=== PATIENT | male | born 1955 | race Caucasian/White ===

== ENCOUNTER 2016-07-22 06:37 | Day surgery (SDC) | payer OTHER ==
[2016-07-18 14:29] VITALS: BMI 27.9
[2016-07-22] MEDS ORDERED: COCAINE HCL 4% TOPICAL SOLUTION 4 ML BOTTLE TP ONE ×2 (07:23→08:25)
[2016-07-22] MEDS ORDERED: LIDOCAINE 1%/EPI 1:100000 (50 ML MULTI DOSE VIAL) ONE (07:32)
[2016-07-22] MEDS ORDERED: MIDAZOLAM HCL 2 MG/2 ML SINGLE DOSE VIAL ONE (07:51)
[2016-07-22] MEDS ORDERED: ROCURONIUM BROMIDE 50 MG/5 ML VIAL ONE (07:52)
[2016-07-22] MEDS ORDERED: SUCCINYLCHOLINE CHLORIDE 200 MG/10 ML VIAL ONE (07:52)
[2016-07-22] MEDS ORDERED: PROPOFOL 20 ML ONE ×2 (07:52)
--- NOTE | 2016-07-22 07:53 | HP ---
Admitting History and Physical - Admission Chief Complaint: Sinus problems and nasal congestion History Source: Patient, Medical Record Limitations to Obtaining History: No Limitations - Past Medical History Cardiovascular: Yes: HTN Renal/: Yes: Other (prostate) - Smoking History Smoking history: Never smoked Have you smoked in the past 12 months: No - Alcohol/Substance Use Hx Alcohol Use: Yes (social) Home Medications - Allergies Allergies/Adverse Reactions: Allergies Allergy/AdvReac Type Severity Reaction Status Date / Time No Known Allergies Allergy Verified 10/09/13 21:46 - Home Medications Home Medications: Ambulatory Orders Alfuzosin HCl [Alfuzosin HCl ER] 10 mg PO DAILY 07/18/16 Amlodipine Besylate 10 mg PO HS 07/18/16 Atenolol [Tenormin -] 50 mg PO DAILY 07/18/16 Hydrochlorothiazide 25 mg PO DAILY 07/18/16 Losartan Potassium 25 mg PO BID 07/18/16 Review of Systems - Review of Systems Constitutional: reports: No Symptoms Eyes: reports: No Symptoms HENT: reports: Nasal Congestion Neck: reports: No Symptoms Cardiovascular: reports: No Symptoms Respiratory: reports: No Symptoms Gastrointestinal: reports: No Symptoms Genitourinary: reports: No Symptoms Musculoskeletal: reports: No Symptoms Integumentary: reports: No Symptoms Neurological: reports: No Symptoms Endocrine: reports: No Symptoms Hematology/Lymphatic: reports: No Symptoms Psychiatric: reports: No Symptoms Physical Examination Vital Signs: Vital Signs Temperature 97.5 F L 07/22/16 06:54 Pulse Rate 59 L 07/22/16 06:54 Respiratory Rate 20 07/22/16 06:54 Blood Pressure 152/59 07/22/16 06:54 O2 Sat by Pulse Oximetry (%) 97 07/22/16 06:54 Constitutional: Yes: Well Nourished, No Distress, Calm Eyes: Yes: WNL HENT: Yes: WNL, Nasal Congestion Neck: Yes: WNL Cardiovascular: Yes: WNL Respiratory: Yes: WNL Gastrointestinal: Yes: WNL Musculoskeletal: Yes: WNL Extremities: Yes: WNL Problem List - Problems (1) Chronic sinusitis Assessment/Plan: Sinus surgery Code(s): J32.9 - CHRONIC SINUSITIS, UNSPECIFIED Qualifiers: Sinusitis location: pansinusitis Qualified Code(s): J32.4 - Chronic pansinusitis
[2016-07-22] MEDS ORDERED: ceFAZolin SODIUM 1 GM VIAL IVPB ONE ×2 (08:10→08:13)
[2016-07-22] MEDS ORDERED: LIDOCAINE 1%/EPI 1:100000 (50 ML MULTI DOSE VIAL) INF ONE (08:24)
[2016-07-22] MEDS ORDERED: ceFAZolin SODIUM 1 GM VIAL ONE (08:25)
[2016-07-22] MEDS ORDERED: ePHEDrine SULFATE 50 MG/1 ML AMPULE ONE (08:39)
[2016-07-22] MEDS ORDERED: BACITRACIN 30 GM TUBE TOPICAL OINTMENT TP ONE (09:00)
[2016-07-22] MEDS ORDERED: PROMETHAZINE HCL 25 MG/1 ML VIAL IVPUSH PRN (09:01)
[2016-07-22] MEDS ORDERED: oxyCODONE HCL 5 MG TABLET PO PRN (09:01)
[2016-07-22] MEDS ORDERED: ONDANSETRON 4 MG/2 ML VIAL IVPUSH PRN (09:01)
[2016-07-22] MEDS ORDERED: NEOSTIGMINE METHYLSULFATE 0.5 MG/ML - 10 ML MDV ONE (09:05)
[2016-07-22] MEDS ORDERED: GLYCOPYRROLATE 0.2 MG/1 ML VIAL ONE (09:05)
--- NOTE | 2016-07-22 10:19 | OP ---
DATE OF OPERATION: 07/22/2016 PREOPERATIVE DIAGNOSIS: Chronic sinusitis, deviated septum, turbinate hypertrophy, nasal polyposis. POSTOPERATIVE DIAGNOSIS: Chronic sinusitis, deviated septum, turbinate hypertrophy, nasal polyposis. PROCEDURE: Bilateral endoscopic _frontal____ balloon sinuplasty and bilateral anterior ethmoidectomy, left maxillary antrostomy with tissue removal, right maxillary balloon sinuplasty, inferior turbinate outfracturing, cautery, and sinus navigation. SURGEON: Molina Feliz MD ANESTHESIA: General with Marion Bermudez MD. INDICATIONS FOR THE PROCEDURE: This is a gentleman with nasal polyposis, chronic nasal congestion, with chronic sinus problems refractory to medical treatment. CT reveals diffuse sinus disease. Risks and benefits of the procedure were discussed, other options were discussed, as well, and all questions were answered, and he wanted to proceed. PROCEDURE FOLLOWS: Patient was brought to the operating room and placed under general anesthesia. The nose was decongested with Cottonoids with 4% cocaine, and an injection of 1% lidocaine with 1:100,000 epinephrine was injected into the inferior turbinates, lateral nasal wall, and nasal polyps. The nose was examined with a headlight and a 0-degree endoscope. Some deviation of the septum was noted, but the deviation did not seem to obstruct his nose significantly, nor obstruct the visualization of the middle turbinates on either side. At which point, using the WHOOP navigation, which we calibrated, I cannulated each frontal sinus, first the left, then the right, and then I placed a frontal sinus balloon in the left frontal sinus and inflated it two times for 5 seconds a piece and withdrew it. Then, I instilled it into the right frontal sinus and inflated it 2 times. Cottonoids were placed in both frontal recesses. At which point, the polyps on the left side were removed using the straight- guided microdebrider. The polyps were obstructing most of the middle meatus. At which point, a straight-guided suction was placed into the bulla of the sinus, and the microdebrider was used to resect the anterior ethmoid to the ground lamella. The uncinate was pulled forward, and using an angled scope, the maxillary sinus was cannulated with the balloon and dilated. Then, the microdebrider was placed through the ostia, and the ostia was widened inferiorly, and material was removed from the maxillary sinus. Mucoid fluid was suctioned as well as some remnant of polyp tissue. Cottonoid was then replaced into the ethmoid. After doing the left side, the right uncinate was peeled forward, and a balloon was placed in a guided fashion into the maxillary antrum on the right side, and the balloon was inflated twice, dilating the ostia. There were very large polyps on the right side, much larger than the left side. These were followed back to the choanae and up into the middle meatus to its detachments on the ethmoid bulla. The ethmoid bulla was entered and exonerated using the microdebrider in a guided fashion. The inferior turbinates were outfractured with a long needle speculum and three passes with the bipolar turbinate cautery was performed, first on the left side, then, on the right side, on a setting of 4.5. A standard NasoPore packing was placed in the left ethmoid and also in the middle meatus on the left side. A firm packing was placed in the ethmoid cavity of the right side, and then the choanae were suctioned, Bacitracin was placed in both nostrils, and the patient was extubated, awakened in the operating room and brought to the recovery room in stable condition. Karine [id number] MTDDianna
[2016-07-22 10:49] VITALS: TEMP 97.7
[2016-07-22 14:09] VITALS: BP 134/78; PULSE 54
--- NOTE | 2016-07-23 14:17 | PATH ---
Surgical Pathology Report Patient Name: WALE HERNANDEZ [facility]. Rec. #: [id number] /Age/Gender: 1955 (Age: 61) / M Account: [id number] Location: [facility] Taken: 07/22/2016 Received: 07/22/2016 Reported: 07/23/2016 Physicians: Molina Feliz M.D. Specimen(s) Received LEFT MAXILLARY & BILATERAL ETHMOID CONTENTS Clinical History Deviated nasal septum Final Diagnosis LEFT MAXILLARY AND BILATERAL ETHMOID CONTENTS, BILATERAL NASAL SHAVINGS: FRAGMENTS OF SINONASAL MUCOSA WITH CHRONIC INFLAMMATION AND FIBROSIS. Electronically Signed Alfredo Singh M.D. Gross Description Received in formalin labeled "bilateral nasal shavings left maxillary and bilateral ethmoid contents" is a 3.0 x 1.4 x 0.2 cm aggregate of rodriguez soft tissue and possible bone fragments. The formalin is filtered and the specimen is entirely submitted in one cassette, following decalcification. /07/22/201607/22/2016
== END 2016-07-22 13:00 | disposition home or self-care (01) ==
LOC: JASU-SURG 06:37
PROVIDERS: ATTEND Otolaryngology
PROC: 09TV4ZZ Resection of Left Ethmoid Sinus, Percutaneous Endoscopic Approach (ICD-10-PCS; 2016-07-22)
PROC: 8E09XBZ Computer Assisted Procedure of Head and Neck Region (ICD-10-PCS; 2016-07-22)
PROC: 099R4ZZ Drainage of Left Maxillary Sinus, Percutaneous Endoscopic Approach (ICD-10-PCS; 2016-07-22)
PROC: 099Q4ZZ Drainage of Right Maxillary Sinus, Percutaneous Endoscopic Approach (ICD-10-PCS; 2016-07-22)
PROC: 09QT4ZZ Repair Left Frontal Sinus, Percutaneous Endoscopic Approach (ICD-10-PCS; 2016-07-22)
PROC: 09QQ4ZZ Repair Right Maxillary Sinus, Percutaneous Endoscopic Approach (ICD-10-PCS; 2016-07-22)
PROC: 09QS4ZZ Repair Right Frontal Sinus, Percutaneous Endoscopic Approach (ICD-10-PCS; 2016-07-22)
PROC: 099Q4ZZ Drainage of Right Maxillary Sinus, Percutaneous Endoscopic Approach (ICD-10-PCS; 2016-07-22)
PROC: 09SL4ZZ Reposition Nasal Turbinate, Percutaneous Endoscopic Approach (ICD-10-PCS; 2016-07-22)
PROC: 8E09XBG Computer Assisted Procedure of Head and Neck Region, With Computerized Tomography (ICD-10-PCS; 2016-07-22)
PROC: 095L4ZZ Destruction of Nasal Turbinate, Percutaneous Endoscopic Approach (ICD-10-PCS; 2016-07-22)
PROC: 8E09XBZ Computer Assisted Procedure of Head and Neck Region (ICD-10-PCS; principal; 2016-07-22 08:00)
PROC: 09TU4ZZ Resection of Right Ethmoid Sinus, Percutaneous Endoscopic Approach (ICD-10-PCS; 2016-07-22 08:00)
DX: J32.9 Chronic sinusitis, unspecified (principal); J34.2 Deviated nasal septum; J34.3 Hypertrophy of nasal turbinates; J33.9 Nasal polyp, unspecified
CPT/HCPCS: 88304-TC; 94760

== ENCOUNTER 2017-03-25 07:50 | Day surgery (SDC) | payer OTHER ==
[2017-03-23 13:44] VITALS: BMI 28.8
[2017-03-25] MEDS ORDERED: PROPOFOL 20 ML ONE ×2 (07:54)
[2017-03-25] MEDS ORDERED: LIDOCAINE HCL/PF 2% SDV 5ML VIAL ONE (07:55)
[2017-03-25 08:27] VITALS: TEMP 97.8
[2017-03-25 10:03] VITALS: BP 117/78; PULSE 71
--- NOTE | 2017-03-30 13:21 | PATH ---
Surgical Pathology Report Patient Name: WALE HERNANDEZ [facility]. Rec. #: [id number] /Age/Gender: 1955 (Age: 61) / M Account: [id number] Location[facility] Taken: 03/25/2017 Received: 03/25/2017 Reported: 03/30/2017 Physicians: Yoan Loving M.D. Specimen(s) Received A: BX RIGHT COLON B: SPLENIC FLEXURE BIOPSY Clinical History Preoperative diagnosis: Rule out colon cancer, history of polyps Postoperative diagnosis: Polyp Final Diagnosis A. RIGHT COLON, BIOPSY: TUBULAR ADENOMA. B. SPLENIC FLEXURE, BIOPSY: TUBULAR ADENOMA. Electronically Signed Malinda Stein M.D. Gross Description A. Received in formalin, labeled "right colon" is a rodriguez, irregular portion of soft tissue measuring 0.1 cm. in greatest dimension. The specimen is submitted in toto in one cassette. B. Received in formalin, labeled "splenic flexure" is a rodriguez, irregular portion of soft tissue measuring 0.2 cm. in greatest dimension. The specimen is submitted in toto in one cassette. 03/26/2017 saudi03/26/2017
== END 2017-03-25 10:00 | disposition home or self-care (01) ==
LOC: FASU-ENDO 07:50
PROVIDERS: ATTEND Internal Medicine Gastroenterology
PROC: 0DBK8ZX Excision of Ascending Colon, Via Natural or Artificial Opening Endoscopic, Diagnostic (ICD-10-PCS; principal; 2017-03-25 09:23)
PROC: 0DBL8ZX Excision of Transverse Colon, Via Natural or Artificial Opening Endoscopic, Diagnostic (ICD-10-PCS; 2017-03-25 09:23)
DX: Z86.010 Personal history of colon polyps (principal); D12.2 Benign neoplasm of ascending colon; D12.3 Benign neoplasm of transverse colon
CPT/HCPCS: 88305-TC